=== PATIENT | male | born 1995 | race African-American/Black ===

== ENCOUNTER 2017-03-24 08:52 | Emergency (ER) | payer BC ==
[~2017-03-24] VITALS: Ht 175.3 cm; Wt 59.1 kg
[2017-03-24 09:00] VITALS: Ht 175.3 cm; Wt 59.1 kg
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
[2017-03-24] MEDS ORDERED: AMOX500C3 PO (11:00)
[2017-03-24] MEDS ORDERED: OXYC1TAB3 PO (11:00)
[2017-03-24 11:46] VITALS: BP 105/52; PULSE 82; TEMP 36.9; O2SAT 98
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
== END 2017-03-24 11:47 | disposition home or self-care (01) ==
LOC: C.EDB 08:56
DX: S02.2XXA Fracture of nasal bones, initial encounter for closed fracture (principal); S03.2XXA Dislocation of tooth, initial encounter; W51.XXXA Accidental striking against or bumped into by another person, initial encounter